=== PATIENT | male | born 1995 | race Caucasian/White ===

== ENCOUNTER 2022-03-25 19:28 | Emergency (ER) | payer SELFPAY ==
[~2022-03-25] VITALS: Ht 177.8 cm; Wt 77.1 kg
--- NOTE | 2022-03-25 20:10 | NUR ---
[id number]. GLF 2ND TO ETOH. CALLED BY [facility] STAFF WHERE HE IS STAYING AT. PLACED COMFORTABLY IN BED. VITALS CHECKED. PATIENT CAME WITH IV CANNULA G18 ON LEFT AC
--- NOTE | 2022-03-25 20:17 | NUR ---
BIBRA FROM [facility]. INTOXICATED, SMELLS OF ALCOHOL. ARROUSABLE. ANSWER BY GESTURE. BROUGHT IN FOR GLF 2ND TO ETOH. PT NOTED WITH LIP SWELLING AND DRY BLOOD ON NOSTRIL. NO RESP DISTRESS. AWAITING MD FOR EVAL.
[2022-03-25] MEDS ORDERED: ONDANSETRON HCL/PF 4 MG/2 ML VIAL IVP ONE (20:30)
[2022-03-25] MEDS ORDERED: IV NS 0.9% 1,000 ML BAG IV ONE (20:30)
--- NOTE | 2022-03-25 20:50 | NUR ---
STATOR TESTER AT BEDSIDE
[2022-03-25] MEDS ORDERED: ONDANSETRON HCL/PF 4 MG/2 ML VIAL ONE (20:54)
[2022-03-25 21:19] LABS: BASOPHILS # (AUTO) 0.1 K/uL (0.0-0.2); BASOPHILS % (AUTO) 0.8 % (0.0-2.0); EOSINOPHILS % (AUTO) 1.3 % (0.0-6.0); HEMATOCRIT 44 % (39-51); HEMOGLOBIN 15.3 g/dL (13.5-17.5); LYMPHOCYTES # (AUTO) 0.9 K/uL (0.8-4.8); LYMPHOCYTES % (AUTO) 13.1 % (20.0-44.0); MEAN CORPUSCULAR HGB CONC 35 g/dl (31.0-36.0); MEAN CORPUSCULAR VOLUME 88 fL (80-96); MONOCYTES # (AUTO) 0.3 K/uL (0.1-1.30); MONOCYTES % (AUTO) 4.3 % (2.0-12.0); NEUTROPHILS # (AUTO) 5.3 K/uL (1.8-8.9); NEUTROPHILS % (AUTO) 80.5 % (43.0-81.0); PLATELET COUNT (AUTO) 115 K/uL (150-450); RED BLOOD CELL COUNT(AUTO) 4.93 MIL/uL (4.5-6.0); WHITE BLOOD COUNT (AUTO) 6.6 K/uL (4.3-11.0)
[2022-03-25 21:20] LABS: CALCIUM, SERUM 8.9 mg/dL (8.5-10.1); CREATININE 0.9 mg/dL (0.6-1.3); POTASSIUM 3.1 mmol/L (3.5-5.1)
[2022-03-25 21:25] LABS: ALBUMIN 4.6 g/dL (3.4-5.0); BILIRUBIN,DIRECT 0.3 mg/dL (0.0-0.2); BILIRUBIN,TOTAL 1.2 mg/dL (0.2-1.0); TOTAL PROTEIN, SERUM 7.7 g/dL (6.4-8.2)
[2022-03-25] MEDS ORDERED: POTASSIUM CL. PREMIX PERIPHER. 50 ML ONE (22:08)
[2022-03-25] MEDS: POTASSIUM CL. PREMIX PERIPHER. 50 ML IV SCH (22:52)
--- NOTE | 2022-03-25 22:54 | NUR ---
1st bag of KCL 10Meq/100cc run for 1 hour. end time 2350H
[2022-03-26] MEDS: POTASSIUM CL. PREMIX PERIPHER. 50 ML IV SCH (00:10)
--- NOTE | 2022-03-26 01:01 | NUR ---
PATIENT IS A, OX3, AWAKE AND RESPONSIVE. AMBULATORY WITH STEADY GAITS. REPORTED FEELING WELL AND WOULD LIKE TO LEAVE. PT MADE AWARE OF HIS LOW POTASSIUM LEVEL AND IV POTASSIUM ORDER. PATIENT HAS ALREADY REC'D ONE BAG OF IV AND REFUSED THE REST. DR ALY MADE AWARE
[2022-03-26] MEDS ORDERED: POTASSIUM CHLORIDE 20 MEQ TAB.PRT.SR PO ONE ×2 (01:09→01:30)
--- NOTE | 2022-03-26 01:39 | NUR ---
PO DIET TOLERATED WELL. PT MEDICATED WITH PO KDUR. IV removed. Catheter intact and site benign. Pressure and 4x4 applied to site. No bleeding noted.Patient discharged to home in stable condition. Written and verbal after care instructions given. Patient verbalizes understanding of instruction.
[2022-03-26 01:41] VITALS: BP 112/72
== END 2022-03-26 01:41 | disposition home or self-care (01) ==
LOC: ER 19:31
DX: S02.40DA Maxillary fracture, left side, initial encounter for closed fracture (principal); S02.40CA Maxillary fracture, right side, initial encounter for closed fracture; S00.531A Contusion of lip, initial encounter; S00.81XA Abrasion of other part of head, initial encounter; F10.129 Alcohol abuse with intoxication, unspecified; R04.0 Epistaxis; E87.6 Hypokalemia; E80.4 Gilbert syndrome; M50.30 Other cervical disc degeneration, unspecified cervical region; Y90.8 Blood alcohol level of 240 mg/100 ml or more; W18.39XA Other fall on same level, initial encounter; Y93.89 Activity, other specified; Y92.59 Other trade areas as the place of occurrence of the external cause; Y99.8 Other external cause status
CPT/HCPCS: 36415; 70450; 70486; 72125; 80048; 80076; 80320; 85025; 96365; 96366; 96375; 99284; J2405; J3480; J7030 ×2; G0480